=== PATIENT | female | born 1955 | race Caucasian/White ===

== ENCOUNTER → 2016-08-24 | Outpatient (CLI) | payer MEDICAID ==
[~2016-08-24] MED LIST: /MELO7TA PO; ADV250INH INH; ASPI325T10 PO; BENZ5TA PO; BIAX500T PO; BUPR15TA PO; Benzonatate PO; DEPAKOTE ER PO; DOXY10CA PO; DRIS50002 PO; IPRASOL4 INH; IPRASOL4 NEB; LITH300C PO; LITH300T2 PO; LITH45TASA PO; LITH600C PO; Lithium Carbonate PO; MUCI600T34 PO; MULTCAP11 PO; NICO14PA TD; OMEP20CA3 PO; PRED20TAB PO; Pantoprazole Sodium PO; QUET30XR PO; QUET5TAB PO; Quetiapine Fumarate PO; RISP12.5 IM; RISP1TAB21 PO; RISP1TAB3 PO; RISP2TAB30 PO; RISP4TAB33 PO; SERO1TAB PO; SERO50TA PO; SPIR1CAP INH; SPIRIVA INH; TESS100C PO; TRAZ50TA2 PO; VENTAER IN; VITA50003 PO; WELLTAB38 PO; spiriva INH
[2016-08-24 13:37] LABS: ALBUMIN/GLOBULIN RATIO 1.43 (1.00-1.93); ALKALINE PHOSPHATASE 136 U/L (45-117); ALT/SGPT 33 U/L (12-78); ANION GAP 7 MEQ/L (8-16); AST/SGOT 18 U/L (15-37); BILIRUBIN,TOTAL 0.3 MG/DL (0.2-1.0); BLOOD UREA NITROGEN 18 MG/DL (7-18); CALCIUM LEVEL 9.2 MG/DL (8.8-10.2); CARBON DIOXIDE LEVEL 32 MEQ/L (21-32); CHLORIDE LEVEL 103 MEQ/L (98-107); CREATININE FOR GFR 0.74 MG/DL (0.55-1.02); FREE T4 0.87 NG/DL (0.76-1.46); GLOMERULAR FILTRATION RATE > 60.0 (>45); GLUCOSE, FASTING 88 MG/DL (80-110); POTASSIUM SERUM 4.3 MEQ/L (3.5-5.1); SODIUM LEVEL 142 MEQ/L (136-145); TOTAL PROTEIN 6.8 GM/DL (6.4-8.2)
== END ==
LOC: M SMT 11:19
PROVIDERS: ATTEND Internal Medicine Cardiovascular Disease
DX: I31.3 Pericardial effusion (noninflammatory) (principal); I50.9 Heart failure, unspecified

== ENCOUNTER → 2016-09-20 | Outpatient (CLI) | payer MEDICAID | LOC: M SMT 10:34 | PROVIDERS: ATTEND Thoracic Surgery (Cardiothoracic Vascular Surgery) | DX: I31.3 Pericardial effusion (noninflammatory) (principal) ==

== ENCOUNTER → 2016-12-01 | Outpatient (REF) | payer OTHER | LOC: M LAB REF 12:42 | PROVIDERS: ATTEND Internal Medicine Medical Oncology | DX: D75.1 Secondary polycythemia (principal) ==

== ENCOUNTER → 2017-02-26 | Outpatient (REF) | payer OTHER ==
[~2017-02-26] MED LIST changes: -MUCI600T34 PO; +MUCI600T37 PO; -RISP2TAB30 PO; +RISP2TAB32 PO; +VITA1CAP40 PO; -VITA50003 PO
[2017-02-26 21:09] LABS: MICROSCOPIC INDICATED? MAN YES (NO)
[2017-02-26 21:18] LABS: BACTERIA, URINE SMALL AMOUNT; CALCIUM OXALATE CRYSTALS,URINE SMALL AMOUNT /hpf; RBC, URINE TNTC /hpf (0-3); SQUAMOUS EPITHELIAL CELL URINE MOD AMOUNT /hpf (SMALL AMT); TRANSITIONAL EPI CELLS, URINE SMALL AMOUNT /hpf; WBC, URINE TNTC /hpf (0-3)
[2017-02-26 21:19] LABS: HYALINE CAST, URINE NONE SEEN /lpf (0-1); MICROSCOPIC EXAM PERFORMED
== END ==
LOC: M LAB REF 20:46
PROVIDERS: ATTEND Physician Assistant Medical
DX: R30.0 Dysuria (principal); R31.9 Hematuria, unspecified

== ENCOUNTER 2017-06-10 18:22 | Inpatient (IN) | payer OTHER ==
[~2017-06-10] VITALS: Ht 160 cm; Wt 65.8 kg
[2017-06-10] MEDS: BUDESONIDE 0.5 MG/2 ML INHALATION SUSPENSION INH SCH (20:00)
[2017-06-10] MEDS: IPRATROPIUM 0.5MG/ALBUTEROL 2.5MG INH SOL UD 3ML (DUONEB)(J7620) NEB SCH (20:00)
[2017-06-10] MEDS: FORMOTEROL FUMARATE 20 MCG/2 ML INHALATION SOLUTION (PERFOROMIST) INH SCH (20:00)
[2017-06-10 20:15] VITALS: BP 123/58
[2017-06-10 20:23] LABS: MEAN CORPUSCULAR HEMOGLOBIN 29.2 pg (27.0-33.0); MEAN CORPUSCULAR HGB CONC 29.7 g/dl (32.0-36.5); MEAN CORPUSCULAR VOLUME 98.4 fl (80.0-96.0); PLATELET COUNT, AUTOMATED 155 10^3/uL (150-450); RED CELL DISTRIBUTION WIDTH 13.7 % (11.5-14.5); WHITE BLOOD COUNT 10.4 10^3/uL (4.0-10.0)
[2017-06-10 20:26] LABS: SUSPECT SAMPLE POS FLAG
[2017-06-10 20:30] LABS: ABG BASE EXCESS -1.8 (-2.0-2.0); ABG HCO3 29.1 MEQ/L (22.0-26.0); ABG TOTAL CO2 31.5 MEQ/L (23.0-31.0)
[2017-06-10 20:31] LABS: ABG PARTIAL PRESSURE CO2 77.6 mmHg (35.0-45.0); ABG pH (ARTERIAL) 7.192 UNITS (7.350-7.450)
[2017-06-10] MEDS ORDERED: DOXY100T PO (20:32)
[2017-06-10] MEDS ORDERED: DOXY100C PO (20:32)
[2017-06-10] MEDS ORDERED: PRED20TA PO (20:37)
[2017-06-10] MEDS ORDERED: QUET1TAB10 PO (20:40)
[2017-06-10] MEDS ORDERED: LEVO1INJ4 IV (20:43)
[2017-06-10] MEDS ORDERED: PROAAER10 INH (20:45)
[2017-06-10 20:46] LABS: ALBUMIN 3.7 GM/DL (3.2-5.2); ALBUMIN/GLOBULIN RATIO 1.12 (1.00-1.93); ALKALINE PHOSPHATASE 120 U/L (45-117); ALT/SGPT 78 U/L (12-78); ANION GAP 6 MEQ/L (8-16); AST/SGOT 35 U/L (7-37); BILIRUBIN,TOTAL 0.6 MG/DL (0.2-1.0); BLOOD UREA NITROGEN 16 MG/DL (7-18); CALCIUM LEVEL 9.1 MG/DL (8.8-10.2); CARBON DIOXIDE LEVEL 34 MEQ/L (21-32); CHLORIDE LEVEL 99 MEQ/L (98-107); CREATININE FOR GFR 0.74 MG/DL (0.55-1.02); GLOMERULAR FILTRATION RATE > 60.0 (>45); GLUCOSE, FASTING 127 MG/DL (80-110); POTASSIUM SERUM 4.8 MEQ/L (3.5-5.1); SODIUM LEVEL 139 MEQ/L (136-145)
[2017-06-10] MEDS ORDERED: CHLORHEXIDINE ORAL RINSE 0.12%/15ML 120ML BOTTLE MT SCH (21:00)
[2017-06-10] MEDS ORDERED: SODIUM CHLORIDE 0.9% 1000 ML IV ONE (21:15)
[2017-06-10] MEDS: methylPREDNISolone INJ 125 MG/2 ML VIAL (J2930) IV SCH (21:18)
[2017-06-10 21:31] VITALS: BP 130/64
--- NOTE | 2017-06-10 21:44 | HPE ---
DATE OF ADMISSION: 06/10/2017 HISTORY: Gayle says hello to me as I walk in the room. She is refusing all care. She does not want bilevel. She understands she will without it. She does not want cardiopulmonary resuscitation (CPR), does not want intubation. States she knows that she is in [facility], that she is in the hospital, and that she is having trouble breathing. She refuses CPR, refuses bilevel positive airway pressure (BiPAP), signed DO NOT RESUSCITATE (DNR) and DO NOT INTUBATE (DNI) paperwork. I was called earlier this evening for this female who was in the [facility] emergency room (ER) for the majority of the day with progressive shortness of breath. She has significant chronic obstructive pulmonary disease (COPD). They had placed her on bilevel over there, apparently did not keep it on there. She had no significant improvement in her respiratory failure and, therefore, was sent here. She denies suicidal ideation. No recent suicide attempts. She states she is having no pain currently. The patient had a self-harm assessment at the outside emergency room. There were no intentions of hurting herself, killing herself, harming herself. She reports no recent abuse. PAST MEDICAL HISTORY: 1. COPD with recurrent acute exacerbation; has required bilevel noninvasive therapy before. 2. Chronic hypoxic respiratory failure. Multiple phone calls have been made both by [facility] and by our hospital to attempt to contact family members. We are unable to get a hold of her daughter. She states she has a daughter that would be her healthcare proxy if she is unable to make her decisions. She has had an abnormal blood gas since 1520 today at [facility] with a pH of 7.21 and a pCO2 of 81. At the outside hospital, she had a CT scan of the brain without any hemorrhage, mass or acute infarct, essentially reported as negative head CT. OUTPATIENT MEDICATIONS: The patient states she takes no medications as an outpatient. She states she does not want to take Tylenol now for any headache that she has. ALLERGIES: She reportedly has allergies to LATEX and PENICILLIN. FAMILY HISTORY: Unobtainable. SOCIAL HISTORY: Unobtainable. REVIEW OF SYSTEMS: Unobtainable at this point in time. PHYSICAL EXAMINATION: VITAL SIGNS: Temperature is 98.8, pulse is 77, respiratory rate is 30, blood pressure is 123/58, oxygen saturation 90%. GENERAL: The patient is awake, stating that she is breathing fine. She is using accessory muscles and appears to be in respiratory distress. HEENT: Pupils are 4 mm but reactive to light. Sclerae clear and anicteric. Mucous membranes are moist. Tongue is midline. NECK: Supple. No tracheal deviation. There is elevated jugular venous pulse (JVP). PULMONARY: Decreased breath sounds throughout without rales, rhonchi or wheezes. No dullness to percussion. She is using both abdominal muscles and supraclavicular muscles for accessory muscle use. No dullness to percussion. ABDOMEN: Slightly distended but no mass or hepatosplenomegaly. No hernia. Normoactive bowel sounds. EXTREMITIES: No cyanosis, clubbing or edema. LABORATORY DATA: Laboratory evaluation here showed a white blood cell count of 10.4, hemoglobin of 16.9, hematocrit 56.9 and platelet count of 155. Sodium is 139, potassium is 4.8 , bicarb is 34, BUN 16, creatinine of 0.7, fasting glucose is 127. Arterial blood gas shows pH of 7.19, pCO2 of 78 and a pAO2 of 95. IMAGING: Chest x-ray shows cardiomegaly with water-bag heart. No significant infiltrate. EKG shows decreased QRS except for in lead V3. No ST abnormalities. Sinus rhythm with a rate of 76. IMPRESSION: 1. Hypoxic hypercarbic respiratory failure, severe in nature. Patient refusing multiple medical therapies. Is alert, knows where she is, oriented to person, place and time and states that she does not want any assistance with mechanical ventilation, bilevel noninvasive ventilatory measures and understand she will likely without these. 2. Cardiomegaly, abnormal chest x-ray. I have discussed working up for potential fluid around her heart due to her cardiac silhouette being enlarged. She is in agreement to having an echocardiogram; however, I am unsure how I am going to be able to support her if she does have a significant pericardial effusion. 3. Bipolar disease. She has a history of psychologic disease, but she has no suicidal intentions, appears to be of sound mind despite her metabolic acidosis. I am attempting to contact family members so she can have a supportive environment. She was offered spiritual counseling. At this point in time, my hands are tied as she is not allowing us to perform resuscitation. In the meantime, we will support for COPD exacerbation , obtain STAT echocardiogram. AVILA
[2017-06-10] MEDS: CEFTRIAXONE SOD 1 GM in APPROPRIATE DILUENT 1 EA IV SCH (23:20)
[2017-06-10] MEDS ORDERED: INFLUENZA QUADRIVALENT PF VACCINE 0.5ML SYRINGE (90686) IM SCH (23:30)
[2017-06-11] VITALS (9 sets, daily range): BP systolic 111–140; BP diastolic 59–74
[2017-06-11] MEDS: ACETAMINOPHEN TAB 650MG DOSE (2X325MG) PO PRN ×2 (03:17→08:24)
[2017-06-11 04:38] LABS: MEAN CORPUSCULAR HEMOGLOBIN 28.9 pg (27.0-33.0); MEAN CORPUSCULAR HGB CONC 28.9 g/dl (32.0-36.5); MEAN CORPUSCULAR VOLUME 100.2 fl (80.0-96.0); PLATELET COUNT, AUTOMATED 148 10^3/uL (150-450); RED CELL DISTRIBUTION WIDTH 13.5 % (11.5-14.5); WHITE BLOOD COUNT 9.1 10^3/uL (4.0-10.0)
[2017-06-11 05:00] LABS: ANION GAP 3 MEQ/L (8-16); BLOOD UREA NITROGEN 15 MG/DL (7-18); CARBON DIOXIDE LEVEL 34 MEQ/L (21-32); CHLORIDE LEVEL 102 MEQ/L (98-107); CREATININE FOR GFR 0.67 MG/DL (0.55-1.02); GLOMERULAR FILTRATION RATE > 60.0 (>45); GLUCOSE, FASTING 128 MG/DL (80-110); MAGNESIUM LEVEL 1.9 MG/DL (1.8-2.4); POTASSIUM SERUM 5.1 MEQ/L (3.5-5.1); SODIUM LEVEL 139 MEQ/L (136-145)
[2017-06-11] MEDS: methylPREDNISolone INJ 125 MG/2 ML VIAL (J2930) IV SCH ×3 (05:18→21:25)
[2017-06-11 06:22] LABS: ABG BASE EXCESS 0.5 (-2.0-2.0); ABG PARTIAL PRESSURE O2 83.7 mmHg (75.0-100.0); ABG STANDARD HCO3 24.9 MEQ/L (22.0-26.0); ABG TOTAL CO2 34.6 MEQ/L (23.0-31.0)
[2017-06-11 06:26] LABS: ABG PARTIAL PRESSURE CO2 84.9 mmHg (35.0-45.0); ABG pH (ARTERIAL) 7.194 UNITS (7.350-7.450)
[2017-06-11] MEDS: TIOTROPIUM INHALER/CAPSULE (SPIRIVA) INH SCH (07:45)
[2017-06-11] MEDS: IPRATROPIUM 0.5MG/ALBUTEROL 2.5MG INH SOL UD 3ML (DUONEB)(J7620) NEB SCH ×4 (07:45→20:00)
[2017-06-11] MEDS: BUDESONIDE 0.5 MG/2 ML INHALATION SUSPENSION INH SCH ×2 (07:45→19:52)
[2017-06-11] MEDS: FORMOTEROL FUMARATE 20 MCG/2 ML INHALATION SOLUTION (PERFOROMIST) INH SCH ×2 (07:45→19:52)
[2017-06-11] MEDS ORDERED: ENOXAPARIN 40 MG/0.4 ML SYRINGE (J1650) SC SCH (09:00)
[2017-06-11] MEDS: PANTOPRAZOLE 40MG INJ (PROTONIX) (C9113) IV SCH (09:18)
--- NOTE | 2017-06-11 12:04 | ECHO ---
DATE OF PROCEDURE: 06/10/2017 DATE OF : 1955 AGE: 62 REFERRING PROVIDER: Dr. Ej Wilkins PATIENT LOCATION: Room 3202 REASON FOR ECHOCARDIOGRAM: Pericardial effusion. 2-D MEASUREMENTS: IVS: 1.2 cm LVPW: 1.2 cm LV: 4.5 cm RV: 4.5 cm LA: 4.6 cm Aortic root: 2.9 cm DOPPLER MEASUREMENTS: Maximum tricuspid valve velocity: 3.6 m/s 2-D COMMENTS: 1. Ruma left ventricular size and wall thickness with a normal global left ventricular systolic function estimated at 65-70%. 2. Normal left atrium. Dilated right atrium and right ventricle. A D-shaped appendix of the ventricular septum was noted in both systole and diastole. Right ventricular contraction may be normal. 3. The atrial septum appeared to be normal without any evidence of defect or shunt. 4. Normal aortic root. 5. A moderate to large pericardial effusion was noted without collapse, but there was some changes in the mitral and tricuspid valve inflow. So in the mitral and tricuspid aberrant flow that may be a manifestation of early cardiac tamponade. 6. Minimally calcified aortic valve with normal leaflet excursion. Normal mitral valve and tricuspid valve. The pulmonic valve and proximal pulmonary artery branches were not well visualized. 7. The inferior vena cava was mildly enlarged, central venous pressure might be elevated. DOPPLER: It detects mild mitral regurgitation and moderate tricuspid regurgitation. The calculated pulmonary artery systolic pressure is between 70-75 mmHg. IMPRESSIONS: 1. Normal global left ventricular systolic function. 2. Mild mitral regurgitation. 3. Moderate tricuspid regurgitation with dilated right heart chambers and severe pulmonary hypertension. 4. There are findings consistent with elevated central venous pressure. 5. Moderate to large pericardial effusion with some echocardiographic evidence of early cardiac tamponade. No collapse was noted on the right heart chambers, but pulmonary pressure is markedly elevated and for this reason we might not see any collapse of the right ventricle (RV) or right atrium (RA). The patient will benefit from a pericardial window or pericardiocentesis and ordering physician is aware. 6. Patient had an echocardiogram done last year on 01/08/2016 and only a small pericardial effusion was noted. Pulmonary artery pressure also was markedly elevated with dilated right heart chambers. Left ventricular systolic ejection fraction (LVEF) also then was normal. [facility]
--- NOTE | 2017-06-11 12:05 | REP ---
REASON: Respiratory failure. COMPARISON: Multiple, latest 01/06/2016. The technique utilized in obtaining the radiograph has magnified the cardiac silhouette and accentuated the interstitial markings. There is cardiomegaly accentuated by technique. There is diffuse haziness throughout the pulmonary vasculature. There is evidence of pulmonary vascular redistribution unchanged from the prior exam. No patchy opacities or pleural effusions seem to have developed on this portable exam. There is no change in the osseous structures. IMPRESSION: Cardiomegaly and suspected mild interstitial edema. Correlate clinically. Signed by Tejinder Ward DO 06/11/2017 08:54 A
--- NOTE | 2017-06-11 12:05 | CCN ---
DATE OF SERVICE: 06/11/2017 Gayle is awake and conversant this morning. Continues to not want any further aggressive intervention. She states she would not use bilevel noninvasive therapy. Does not want to be intubated. Does not want to have cardiopulmonary resuscitation (CPR). She understands if she does not do so, she will likely . She states she does not need any medications for pain or shortness of breath at this time; however, states that if she did have pain or dyspnea that was causing her distress that she would accept medications. I discussed narcotic medications at her bedside along with benzodiazepines. At this point in time, she states she is not ready for them yet, but would accept them if she gets to a certain point. I discussed the difference between comfort driven care and aggressive care. She states she would choose comfort care over aggressive care. At this point in time, she states she feels "okay". She has some shortness of breath. She is definitely orthopneic. No productive mucus. She is alert and oriented times three and conversant. A stat bedside echocardiogram was performed yesterday. There is a large pericardial effusion. The patient had a history of a large pericardial effusion dating back to January based on echocardiogram that I viewed. The echocardiogram did not show any D'ing of the septum. There was no ventricular compression, however, there was evidence of significant pulmonary hypertension. There was some minimal respiratory variation of the inferior vena cava. PHYSICAL EXAMINATION: Temperature is 98.6, pulse 69, respiratory rate of 31, blood pressure is 135/70 with a mean arterial pressure of 91, oxygen saturation ranging 73% to 93% on 3 liters FiO2. She is net positive 1 liter over the past 24 hours. GENERAL: The patient is sitting upright in bed, arouses to voice, does not fall asleep unintentionally during conversation. HEENT: Sclerae clear, anicteric. Pupils equal, reactive to light. Mucous membranes are moist. Tongue is midline. Neck is supple. There is elevated jugular venous pulse (JVP). No thyromegaly. Lymphs: No cervical, supraclavicular or axillary adenopathy. Cardiac: Regular. S1, S2. Without audible murmur, rub or gallop. Distant heart sounds. PMI is difficult to palpate. Pulmonary: Decreased breath sounds throughout. Without rales, rhonchi or wheezes. Overall decreased breath sounds with prolonged expiratory phase. Minimal accessory muscle use, not as much as last night. Abdomen is soft, potty, nontender, nondistended. No hepatosplenomegaly. No masses or hernia. Extremities: No cyanosis, clubbing or edema. LABORATORY EVALUATION: This morning again shows a persistent respiratory acidosis with a pH of 7.19, pCO2 of 85, pAO2 of 83. Sodium is 139, potassium 5.1, chloride 102, bicarb 34, BUN 15, creatinine 0.6, glucose 128. White blood cell count is 5.1, hemoglobin 16.2, hematocrit of 56.1, with a platelet count of 148. Chest x-ray this morning shows cardiomegaly, no significant infiltrate. IMPRESSIONS: 1. Acute hypercarbic hypoxic respiratory failure with advanced chronic obstructive pulmonary disease (COPD). Patient with respiratory acidosis. Patient refusing interventions to save her life. Appears that she is headed towards more of a comfort measures only. She repeatedly states that she understands she will without these interventions and does not want them. I have placed her on steroids and respiratory antibiotics for her COPD exacerbation. At this point in time, she has no signs of septic shock or sepsis. Will continue breathing treatments as much as patient will allow us to and as much care as the patient will allow us to perform. When she is ready, she states she will allow comfort measures to be instituted; however, she is not at that point yet. 2. Pericardial effusion without evidence of tamponade. EKG shows general decreased QRS voltage, but no significant ST abnormalities. No evidence of electrical alternans. At this point in time, the patient is refusing aggressive measures. Ultimately, if the patient were to agree to aggressive measures, I would have performed intubation, mechanical ventilation and drainage of pericardial effusion due to its large nature. 3. Pulmonary hypotension likely from longstanding COPD. Prognosis is poor, especially due to the fact that she is refusing all critical care interventions. I have transferred her to the medicine service since she is refusing all the care than I normally provide. She was advised to notify the nurse if she has any change of heart, otherwise will continue to support the patient as she desires.
--- NOTE | 2017-06-11 12:06 | REP ---
REASON: Respiratory failure. COMPARISON: 06/10/2017 at 9:27 p.m. The technique utilized in obtaining the radiograph has magnified the cardiac silhouette and accentuated the interstitial markings. Cardiomediastinal silhouette and lung salas are unchanged. There is cardiomegaly accentuated by technique. There is a subtle diffuse haziness seen throughout the pulmonary vasculature with mild pulmonary vascular redistribution status quo. IMPRESSION: No change. A pericardial effusion cannot be ruled out by this exam. Signed by Tejinder Ward DO 06/11/2017 09:19 A
--- NOTE | 2017-06-11 12:07 | CCN ---
DATE OF SERVICE: 06/11/2017 Gayle Thorne has now changed her mind regarding her resuscitation status. She is willing to accept noninvasive ventilation. She is willing to accept mechanical ventilation. Therefore, I have rescinded her DO NOT RESUSCITATE (DNR). She states she is willing to accept aggressive procedures in order to make her feel better. I have, therefore, immediately placed her on bilevel noninvasive therapy after she made this decision due to her significant hypercarbic respiratory failure. Will consult thoracic surgery. Dr. Guerra is now on the case and helpful as the attending. Additional critical care time was 45 minutes, excluding all procedures, assisting the patient with ventilation and arranging for possible percutaneous drainage of her pericardial effusion.
[2017-06-11 12:20] LABS: ABG BASE EXCESS 1.5 (-2.0-2.0); ABG HCO3 29.5 MEQ/L (22.0-26.0); ABG PARTIAL PRESSURE CO2 59.2 mmHg (35.0-45.0); ABG PARTIAL PRESSURE O2 62.6 mmHg (75.0-100.0); ABG STANDARD HCO3 25.7 MEQ/L (22.0-26.0); ABG TOTAL CO2 31.3 MEQ/L (23.0-31.0); ABG pH (ARTERIAL) 7.315 UNITS (7.350-7.450)
[2017-06-11] MEDS ORDERED: ISOVUE-370 76% 100ML VIAL (Q9967) As Ordered ONE (13:14)
--- NOTE | 2017-06-11 14:37 | REP ---
REASON: Dyspnea. COMPARISON: 11/14/2015. CONTRAST: 100 mL Isovue 370. Mediastinum and pulmonary meño are unchanged showing no evidence of a mass or adenopathy. There is a pericardial effusion which has increased significantly compared to the prior exam. There is no felipa pleural effusion. The upper abdomen is unchanged from the prior exam and the imaged osseous structures are within normal limits for the patient's age and unchanged from the prior exam. Evaluation of the lung salas again show wide spread emphysematous changes status post quo and particularly seen in the upper lobe regions. In the left lower lobe, there is a new asymmetric opacity. IMPRESSION: 1. There is a pericardial effusion which has increased from the prior exam and is moderate to large. 2. Emphysematous changes status quo. 3. New patchy right lower lobe opacity, pneumonia and/or subsegmental atelectatic change. Followup is recommended to rule out an underlying neoplasm. Signed by Tejinder Ward DO 06/11/2017 02:59 P
--- NOTE | 2017-06-11 14:54 | CR ---
DATE OF CONSULTATION: 06/11/2017 The patient seen at the request of Dr. Wilkins and Dr. Guerra of the hospitalist service for a pericardial effusion. The patient is a 62-year-old, white female who I saw in the office on 09/29/2016 who has a chronic pericardial effusion for whom I was going to undertake an elective pericardial window. She did not follow up with me. Yesterday, she sought medical attention in the [facility] for "swollen eyes". She was also short of breath, more so than usual. She is a rather poor historian at this point in time. I have taken off her CPAP mask to take a history, but she has very limited memory. Nonetheless, she was transferred here for her shortness of breath. At first, she wanted nothing done and declared herself a DO NOT RESUSCITATE patient and refused bilevel respiratory support. Dr. Wilkins initially saw her and thought that she has severe chronic obstructive pulmonary disease (COPD) and needed support. Evidently during the night, she has changed her mind. As she had known pericardial effusion, an echocardiogram was undertaken which showed about a 2 cm concentric pericardial effusion. There was no compression of the right atrium or ventricles; however, she has very high pulmonary pressures and therefore it is probably not going to show compression secondary to high pulmonary pressure secondary to her long standing COPD. She denies having fever, chills or sweats. She has a cough with white phlegm production, but no more than usual. She thinks that her weight has been stable. She denies peripheral edema. When specifically asked whether her eyes are swelling up or whether her head is swelling, she denies that she thinks her head is swelling. She does not complain of dysphagia. When asked about chest pain, she states that she does have chest pain, but she is incapable of describing it. It is not a sharp pain, it is not an aching pain, and it is not a pressure-type pain, but nonetheless it is still there and she points to the middle of her chest. This seems to have occurred within the last week. She complained of the same chest discomfort when I last saw her in September. PAST MEDICAL HISTORY: 1. COPD. 2. Prior pericardial effusion. 3. Bipolar disorder. PAST SURGERIES: Cholecystectomy in the remote past. MEDICATIONS AT HOME: - ProAir 2 puffs four times a day as needed shortness of breath - Wellbutrin 150 mg daily - doxycycline 100 mg by mouth twice a day - levofloxacin 750 mg given at [facility] times one - lithium 600 mg twice a day - prednisone 20 mg daily - quetiapine fumarate 300 mg at bedtime TRAVEL HISTORY: She has traveled to [place]. No travel to the [facility]. HABITS: Current smoker and has smoked one pack per day for 41 years. There was an interval of 10 years when she quit, but she started again. Alcohol - none. Illicit drugs - none. OCCUPATIONAL HISTORY: Janitorial cleaning. Has no convincing asbestos exposure. EXPOSURES: No prior exposure to tuberculosis. She used to have parakeets in the remote past. There are no other pets at home now. REVIEW OF SYSTEMS: Constitutional: See history of present illness (HPI). Denies fever, chills, sweats, or weight loss. Eyes: Without diplopia, amaurosis fugax or prior jaundice. Nose: Without epistaxis. Respiratory: See HPI. Cardiac: See HPI. Gastrointestinal (GI): Has constipation, but no nausea or vomiting. No diarrhea. No abdominal pain, hematemesis, prior jaundice, melena, or hematochezia. Neurologic: Without paresthesias, paralyses or transient monocular blindness. Psychiatric: Bipolar disorder. Endocrine: Without diabetes or thyroid disease. Hematologic: Has easy bruisability, but not prolonged bleeding times. Lymphatics: Without lumps or bumps in her neck, axilla or groin. Genitourinary (): Without dysuria, hematuria or history of renal stones. PHYSICAL EXAMINATION: Well developed, well nourished, white female in acute respiratory distress on BiPAP. Vital Signs: Temperature 98.0. Heart rate 78 in a sinus rhythm. Respiratory rate is 24 on BiPAP and she is 95% saturated on 30% FiO2. Her blood pressure is 134/68. Pupils equal round and reactive. Extraocular movements intact. Sclerae nonicteric. Eyelids are slightly edematous. Nose without deformity. Mouth shows her mucous membranes to be pink and moist. Lips and commissures without lesions. There is no thrush. Head: Normocephalic. Head looks a bit cyanotic, but now swollen. Neck is supple. There is no jugular venous distention. No subcutaneous emphysema. Trachea is midline. There is no thyromegaly or lymphadenopathy. She has 2+ carotid upstrokes, no bruits. Lungs: Show equal breath sounds on either side. There are rales and rhonchi on either side. Percussion note is full to the diaphragm. Cardiac Exam: Shows distant heart sounds. I do not detect murmurs, clicks, gallops, or rubs. I cannot feel her PMI. S1, S2 are normal. Abdomen: Soft. Nontender. Bowel sounds are positive. There is no hepatomegaly. No costovertebral angle (CVA) tenderness. Extremities: Show trace pretibial edema. No calf tenderness. No differential swelling of the upper extremities. Skin: Warm, dry and perfused. Without cyanosis or mottling, including that of the nail beds and knees. Neurologic: Shows II-XII intact along with gross motor and gross sensation intact. Gait is not tested. Psychiatric shows her to be awake, alert, and a little bit confused with poor communication and poor attention span. Her white count is 9.1 with hemoglobin and hematocrit of 16.2 and 56.1 respectively with a platelet count of 148. There is no differential. Electrolytes show a potassium of 5.1 which is upper limits of normal with a total CO2 slightly elevated at 34. BUN and creatinine are 15 and 0.67 with a glucose of 128 and a calcium of 9.0. Magnesium 1.9. Blood gases this morning show a pH of 7.31, pCO2 of 59 and a pO2 of 62. Yesterday, she entered the emergency room with a pH of 7.19, pCO2 of 84, prior to BiPAP. There are no coagulation studies. Her chest x-ray done portably this morning shows a very globular heart. It is almost to the chest wall. Costophrenic angles are sharp. There is no lateral film. There is cephalization of vessels, even on the portable sitting film. There is no mediastinal widening. Lung is fully expanded to the chest wall. I see no overt infiltrates and there is no subcutaneous emphsema. Echocardiogram done yesterday night and today, both of which I attended, shows a 2 cm pericardial effusion. Today's echocardiogram was used to localize the best window for the pericardial effusion and it looks as though it is around the fifth intercostal space in the anterior axillary line with very little lung if any between it and the pericardium. It is there where I propose to do a pericardiocentesis. She has dilated right ventricle and right atrium with pulmonary hypertension and hence no compression of those chambers secondary to the high pressures. IMPRESSION: 1. Pericardial effusion increasing. 2. Pulmonary hypertension. 3. Severe chronic obstructive pulmonary disease. 4. Probable right heart failure. 5. Tricuspid regurgitation. 6. Bipolar disorder. 7. Respiratory failure. PLAN AND DISCUSSION: I am going to give her 24 hours to resolve or improve the respiratory failure. She is not overtly tamponading and her blood pressure is satisfactory as is her pulse. She is not on beta blockers and so the low pulse is not artificially reduced by a beta kylah. I will have operating room backup tomorrow for the pericardiocentesis should it not be successful or should I puncture the heart. This is going to be a rather tricky pericardiocentesis, but I think doable. Will send the fluid off for all the requisite studies. Ms. Thorne understands that there are no DO NOT RESUSCITATES on the thoracic service and that the time to make decisions for resuscitation is now rather than before the operation. She fully understands that. It is my ethical responsibility to get her through a surgical procedure. She understands that there may be complications, including renal failure and respiratory failure. So as long as there is not an irreversible process, she understands that we will press on. That discussion was held in the presence of a nurse.
[2017-06-11 14:56] LABS: INR 1.14
[2017-06-11] MEDS ORDERED: SLF 3 ML SYR IV PRN (16:45)
--- NOTE | 2017-06-11 17:46 | IPNPDOC ---
Text Note Date of Service The patient was seen on 06/11/17. NOTE asked by Dr Wilkins to accept as primary. Patient seen and examined. Informed by Dr Wilkins and nursing staff that patient overnight wanted to be DNR/DNI and has refused bipap and surgical intervention. Spoke to patient who initially wanted to be DNR and DNI, but when informed of the possibility of dying from hypercarbic respiratory failure and the potential need for surgery for pericardial effusion, patient stated that she wanted surgery and would agree to bipap and intubation. Subsequently DNR was also rescinded. Dr Wilkins and Jenny RN was at bedside . Patient poor historian. Reported generalized weakness, sob. started that she probably smoke too much. appointed Her son Anoop as HCP but unable to reach him. PFT order placed Gen AAOx3, using accessory muscles, but seems relatively comfortable HEENT NC AT, MMM Pul decreased breath sound b/l, no w/r/r cardia distant heart sound, rrr s1s2 abd soft NT +BS ext no clubbing cyanosis or edema 62 F year-old female with prior history of smoking, severe COPD, on o2 at home,h /o hypercarbic respiratory failure, Pul HTN, bipolar received by Dr Wilkins from [facility] for acute on chronic hypoxic hypercarbic respiratory failure. found to have moderate pericardial effusion 1. acute on chronic Hypoxic hypercarbic respiratory failure, with severe COPD, pul HTN possible right heart failure f/u pul rec patient care delay due to patient's indecision, patient initially refused bipap , insisted on DNR/DNI currently full code duoneb, solumedrol,. Spiriva, budesonide and formoterol bipap repeat abg showed improvement rocephin 2. moderate to large pericardial effusion tte Thoracic surgery consulted possible pericardicentesis 3. Bipolar disease. She has a history of psychologic disease, but she has no suicidal intentions. hold Seroquel restart Wellbutrin and lithium check lithium level dvt ppx teds scd, AC on hold due to possible procedure. dipo pending clinical improvement VS,Fishbone, I+O VS, Fishbone, I+O Laboratory Tests 06/10/17 20:15 Red Blood Count 5.78 H, Mean Corpuscular Volume 98.4 H, Mean Corpuscular Hemoglobin 29.2, Mean Corpuscular Hemoglobin Concent 29.7 L, Red Cell Distribution Width 13.7, Calcium Level 9.1, Aspartate Amino Transf (AST/SGOT) 35 , Alanine Aminotransferase (ALT/SGPT) 78, Alkaline Phosphatase 120 H, Total Bilirubin 0.6, Total Protein 7.0, Albumin 3.7 06/11/17 04:13 Red Blood Count 5.60 H, Mean Corpuscular Volume 100.2 H, Mean Corpuscular Hemoglobin 28.9, Mean Corpuscular Hemoglobin Concent 28.9 L, Red Cell Distribution Width 13.5, Calcium Level 9.0 Vital Signs Date Time Temp Pulse Resp B/P (MAP) Pulse Ox O2 Delivery O2 Flow Rate FiO2 06/11/17 16:00 BIPAP/CPAP 30 06/11/17 16:00 98.8 81 28 140/69 (92) 95 06/11/17 10:00 3.0 I&O- Last 24 Hours up to 6 AM 06/12/17 06:00 Intake Total 0 ml Output Total 200 ml Balance -200 ml JONAH WRIGHT MD Jun 11, 2017 17:46
[2017-06-11] MEDS: LITHIUM CARBONATE 600 MG CAP PO SCH (21:24)
[2017-06-11] MEDS: SLF 3 ML SYR IV SCH (21:25)
[2017-06-11] MEDS: CEFTRIAXONE SOD 1 GM in APPROPRIATE DILUENT 1 EA IV SCH (22:45)
[2017-06-12] VITALS (26 sets, daily range): BP systolic 110–160; BP diastolic 56–76; O2SAT 98
[2017-06-12 04:37] LABS: MEAN CORPUSCULAR HEMOGLOBIN 29.2 pg (27.0-33.0); MEAN CORPUSCULAR HGB CONC 30.2 g/dl (32.0-36.5); MEAN CORPUSCULAR VOLUME 96.6 fl (80.0-96.0); PLATELET COUNT, AUTOMATED 167 10^3/uL (150-450); RED CELL DISTRIBUTION WIDTH 13.5 % (11.5-14.5)
[2017-06-12 05:02] LABS: ANION GAP 6 MEQ/L (8-16); BLOOD UREA NITROGEN 19 MG/DL (7-18); CARBON DIOXIDE LEVEL 33 MEQ/L (21-32); CHLORIDE LEVEL 101 MEQ/L (98-107); CREATININE FOR GFR 0.51 MG/DL (0.55-1.02); GLOMERULAR FILTRATION RATE > 60.0 (>45); GLUCOSE, FASTING 121 MG/DL (80-110); MAGNESIUM LEVEL 2.1 MG/DL (1.8-2.4); POTASSIUM SERUM 4.4 MEQ/L (3.5-5.1); SODIUM LEVEL 140 MEQ/L (136-145)
[2017-06-12 05:07] LABS: LITHIUM LEVEL 0.95 MEQ/L (0.60-1.20)
[2017-06-12] MEDS: SLF 3 ML SYR IV SCH ×3 (05:28→23:17)
[2017-06-12] MEDS: methylPREDNISolone INJ 125 MG/2 ML VIAL (J2930) IV SCH ×3 (05:29→21:11)
[2017-06-12] MEDS: IPRATROPIUM 0.5MG/ALBUTEROL 2.5MG INH SOL UD 3ML (DUONEB)(J7620) NEB SCH ×4 (08:00→20:00)
[2017-06-12] MEDS: TIOTROPIUM INHALER/CAPSULE (SPIRIVA) INH SCH (08:00)
[2017-06-12] MEDS: BUDESONIDE 0.5 MG/2 ML INHALATION SUSPENSION INH SCH ×2 (08:01→20:29)
[2017-06-12] MEDS: FORMOTEROL FUMARATE 20 MCG/2 ML INHALATION SOLUTION (PERFOROMIST) INH SCH ×2 (08:01→20:28)
[2017-06-12] MEDS ORDERED: MIDAZOLAM INJ 2 MG/2 ML VIAL (J2250) As Ordered ONE (08:33)
[2017-06-12] MEDS ORDERED: LIDOCAINE 1% MDV 20ML VIAL As Ordered ONE (08:34)
[2017-06-12 10:12] LABS: ABG BASE EXCESS 5.6 (-2.0-2.0); ABG HCO3 33.5 MEQ/L (22.0-26.0); ABG PARTIAL PRESSURE O2 67.2 mmHg (75.0-100.0); ABG STANDARD HCO3 29.4 MEQ/L (22.0-26.0); ABG TOTAL CO2 35.4 MEQ/L (23.0-31.0); ABG pH (ARTERIAL) 7.355 UNITS (7.350-7.450)
[2017-06-12 10:16] LABS: ABG PARTIAL PRESSURE CO2 61.4 mmHg (35.0-45.0)
--- NOTE | 2017-06-12 10:21 | REP ---
REASON FOR EXAM: Status post pericardial window with pericardial drainage tube. The cardiac size has diminished even though the exam is obtained using portable technique. The technique utilized in obtaining the radiograph has magnified the cardiac silhouette and accentuated the interstitial markings. There is no change in the lung salas. No acute patchy opacities have developed. There is no pneumothorax. There is no change in the osseous structures. IMPRESSION: Decreased cardiac size consistent with reduction of a pericardial effusion. Signed by Tejinder Ward DO 06/12/2017 10:28 A
--- NOTE | 2017-06-12 10:31 | IPNPDOC ---
Text Note Date of Service The patient was seen on 06/12/17. NOTE no acute events overnight. mental status slightly improved. Denied CP, abd pain , n/v, reported hungry. on bipap Gen AAOx3, using accessory muscles, but seems relatively comfortable HEENT NC AT, MMM Pul decreased breath sound b/l, no w/r/r cardia distant heart sound, rrr s1s2 abd soft NT +BS ext no clubbing cyanosis or edema 62 F year-old female with prior history of smoking, severe COPD, on o2 at home,h /o hypercarbic respiratory failure, Pul HTN, bipolar received by Dr Wilkins from [facility] for acute on chronic hypoxic hypercarbic respiratory failure. found to have moderate pericardial effusion 1. acute on chronic Hypoxic hypercarbic respiratory failure, with severe COPD, pul HTN possible right heart failure f/u pul rec patient care delay due to patient's indecision, patient initially refused bipap , insisted on DNR/DNI currently full code duoneb, solumedrol,. Spiriva, budesonide and formoterol bipap repeat abg showed improvement rocephin 2. moderate to large pericardial effusion tte Thoracic surgery consulted pericardicentesis today f/u fluid annalysis likely 2/2 to Pul HTN 3. Bipolar disease. She has a history of psychologic disease, but she has no suicidal intentions. hold Seroquel restart Wellbutrin and lithium check lithium level 4. Counseling provided nicotine patch time spent 5 min dvt ppx teds scd, AC on hold due to possible procedure. dipo pending clinical improvement VSAgatha, I+O VS, Agatha, I+O Laboratory Tests 06/12/17 04:07 Red Blood Count 5.28, Mean Corpuscular Volume 96.6 H, Mean Corpuscular Hemoglobin 29.2, Mean Corpuscular Hemoglobin Concent 30.2 L, Red Cell Distribution Width 13.5, Calcium Level 9.0 Vital Signs Date Time Temp Pulse Resp B/P (MAP) Pulse Ox O2 Delivery O2 Flow Rate FiO2 06/12/17 08:02 30 06/12/17 08:00 BIPAP/CPAP 06/12/17 04:00 98.8 73 22 136/64 (88) 94 06/11/17 10:00 3.0 JONAH WRIGHT MD Jun 12, 2017 10:31
[2017-06-12] MEDS ORDERED: LIDOCAINE 1% MDV 20ML VIAL SC ONE (11:00)
[2017-06-12] MEDS ORDERED: MIDAZOLAM INJ 2 MG/2 ML VIAL (J2250) IV ONE (11:00)
[2017-06-12] MEDS: LITHIUM CARBONATE 600 MG CAP PO SCH ×2 (11:49→21:12)
[2017-06-12] MEDS: buPROPion **XL** TABLET 150MG (WELLBUTRIN XL) PO SCH (11:50)
[2017-06-12] MEDS: PANTOPRAZOLE 40MG INJ (PROTONIX) (C9113) IV SCH (11:51)
[2017-06-12] MEDS: NICOTINE 14 MG/24 HR TRANSDERMAL TD SCH (11:53)
[2017-06-12 12:20] LABS: LDH, BODY FLUID 189 U/L (NOT ESTABLISHED); TOTAL PROTEIN, BODY FLUID 4.3 G/DL (NOT ESTABLISHED)
[2017-06-12 12:29] LABS: BF MONONUCLEAR CELL % 69.3 % (0-0); BF POLYMORPHONUCLEAR CELL % 30.7 % (0-0); RBC BODY FLUID 4 10^3/uL (<2); WBC BODY FLUID 117 /uL (0-10)
[2017-06-12 12:31] LABS: BF DIFF IF INDICATED? YES (NO)
--- NOTE | 2017-06-12 12:57 | IPN ---
DATE OF SERVICE: 06/12/2017 Ms. Thorne is still on bilateral positive airway pressure (BiPAP). Examination was performed both before and after her pericardiocentesis. Her vital signs show a maximum temperature (Tmax) of 98.8 with a heart rate that ranges between 79 and 83 in a sinus rhythm, respiratory rate of 22 on BiPAP. With that, she is 94% saturated on 30% FIO2. Her intake and output over the past 24 hours has been recorded as only 70 mL in and 675 mL out, for a negativity of 600 mL. Her weight today is 69.5 kg compared to 69.4 kg on 06/10/2017. On physical examination, her lungs show scattered rhonchi. I cannot get her to cough on BiPAP. Percussion note is full to the diaphragm. After the physical examination, her lungs sounded less congested. Cardiovascular examination: Is without murmurs, click, gallops, or rubs. Her heart sounds were very very distant prior to the pericardiocentesis and much more pronounced after the pericardiocentesis. Furthermore, her QRS is much more pronounced after the pericardiocentesis. I cannot feel her point of maximal impulse (PMI). S1 and S2 are normal. Abdomen: Is soft, nontender, but tympanitic and distended. Bowel sounds are positive but hypoactive. There is no hepatomegaly and no costovertebral angle (CVA) tenderness. Extremities show no pretibial edema, no calf tenderness, no differential swelling of the upper extremities. Skin: Is warm, dry, and perfused without cyanosis or mottling, including that of the nail beds and the knees. Neck is supple. There is no jugular venous distention, no subcutaneous emphysema. Trachea is midline. Mouth shows her mucous membranes to be pink and moist. Lips and commissures without lesions. There is no thrush. Eyes show her pupils to be equal and reactive. Extraocular muscles intact. Sclerae anicteric. Neurologic: Shows II-XII intact, along with gross motor and gross sensation intact. Gait is not tested. Psychiatric: Shows her to be awake, alert, and oriented times three, with appropriate mood and affect. Her white count today is 11.0 with a hemoglobin and hematocrit of 15.4 and 51.0 with a platelet count of 167 and stable. Chemistries today show normal electrolytes with a marginally high total CO2 of 33. BUN and creatinine are 19 and 0.51 with a glucose of 121 and a calcium of 9.0 and a magnesium of 2.1. Her PT/INR yesterday were 14.8 and 1.14, respectively. Blood gases today show a pH of 7.355, pCO2 is 61, pO2 of 67. Her base excess is 5.6. Her chest x-ray yesterday, both done portably, shows a rather globular heart with cephalization of vessels. Her chest x-ray after the pericardiocentesis showed a much less globular heart. I see no overt infiltrates on the portable films. Costophrenic angles are sharp. There is no pneumothorax after the pericardiocentesis. IMPRESSION: 1. Pericardial effusion, increasing. 2. Pulmonary hypertension. 3. Severe chronic obstructive pulmonary disease (COPD). 4. Right heart failure. 5. Tricuspid regurgitation. 6. Bipolar disorder. 7. Respiratory failure. PLAN AND DISCUSSION: I have undertaken a pericardiocentesis today under echo guidance. The operating room is standing by should there be a complication. Hopefully, after the pericardiocentesis, she will breathe better and will be able to be weaned off her BiPAP.
[2017-06-12] MEDS: ACETAMINOPHEN TAB 650MG DOSE (2X325MG) PO PRN ×3 (13:19→21:12)
--- NOTE | 2017-06-12 14:17 | ECHO ---
LIMITED ECHOCARDIOGRAM POST PERICARDIOCENTESIS DATE OF STUDY: 06/12/2017 2D COMMENTS: 1. Please refer to echocardiogram done on 06/10/2017 for details. 2. Limited echocardiogram done today revealed only trace pericardial effusion noted in limited views. Left ventricular ejection fraction (LVEF) is normal. 3. The study was technically very limited due to poor acoustic window. AVILA
[2017-06-12] MEDS: CEFTRIAXONE SOD 1 GM in APPROPRIATE DILUENT 1 EA IV SCH (23:17)
[2017-06-13] VITALS (9 sets, daily range): BP systolic 124–144; BP diastolic 61–77; O2SAT 91–97
[2017-06-13] MEDS: ACETAMINOPHEN TAB 650MG DOSE (2X325MG) PO PRN (04:04)
[2017-06-13 04:46] LABS: MEAN CORPUSCULAR HEMOGLOBIN 29.2 pg (27.0-33.0); MEAN CORPUSCULAR HGB CONC 30.5 g/dl (32.0-36.5); MEAN CORPUSCULAR VOLUME 95.8 fl (80.0-96.0); PLATELET COUNT, AUTOMATED 171 10^3/uL (150-450); RED CELL DISTRIBUTION WIDTH 13.4 % (11.5-14.5); WHITE BLOOD COUNT 14.4 10^3/uL (4.0-10.0)
[2017-06-13 04:47] LABS: SUSPECT SAMPLE POS FLAG
[2017-06-13 05:02] LABS: ANION GAP 3 MEQ/L (8-16); BLOOD UREA NITROGEN 20 MG/DL (7-18); CALCIUM LEVEL 8.8 MG/DL (8.8-10.2); CARBON DIOXIDE LEVEL 34 MEQ/L (21-32); CHLORIDE LEVEL 102 MEQ/L (98-107); CREATININE FOR GFR 0.55 MG/DL (0.55-1.02); GLOMERULAR FILTRATION RATE > 60.0 (>45); GLUCOSE, FASTING 149 MG/DL (80-110); MAGNESIUM LEVEL 2.1 MG/DL (1.8-2.4); POTASSIUM SERUM 4.4 MEQ/L (3.5-5.1); SODIUM LEVEL 139 MEQ/L (136-145)
[2017-06-13] MEDS: methylPREDNISolone INJ 125 MG/2 ML VIAL (J2930) IV SCH ×2 (05:36→12:58)
[2017-06-13] MEDS: SLF 3 ML SYR IV SCH ×3 (05:37→21:12)
[2017-06-13] MEDS: FORMOTEROL FUMARATE 20 MCG/2 ML INHALATION SOLUTION (PERFOROMIST) INH SCH ×2 (07:34→19:25)
[2017-06-13] MEDS: TIOTROPIUM INHALER/CAPSULE (SPIRIVA) INH SCH (07:34)
[2017-06-13] MEDS: BUDESONIDE 0.5 MG/2 ML INHALATION SUSPENSION INH SCH ×2 (07:35→19:25)
[2017-06-13] MEDS: IPRATROPIUM 0.5MG/ALBUTEROL 2.5MG INH SOL UD 3ML (DUONEB)(J7620) NEB SCH ×4 (07:36→20:00)
[2017-06-13] MEDS: PANTOPRAZOLE 40MG INJ (PROTONIX) (C9113) IV SCH (08:19)
[2017-06-13] MEDS: NICOTINE 14 MG/24 HR TRANSDERMAL TD SCH (08:20)
[2017-06-13] MEDS: LITHIUM CARBONATE 600 MG CAP PO SCH ×2 (08:20→21:12)
[2017-06-13] MEDS: buPROPion **XL** TABLET 150MG (WELLBUTRIN XL) PO SCH (08:20)
[2017-06-13 09:19] LABS: ABG BASE EXCESS 3.3 (-2.0-2.0); ABG HCO3 30.3 MEQ/L (22.0-26.0); ABG PARTIAL PRESSURE CO2 53.4 mmHg (35.0-45.0); ABG PARTIAL PRESSURE O2 75.8 mmHg (75.0-100.0); ABG STANDARD HCO3 27.3 MEQ/L (22.0-26.0); ABG pH (ARTERIAL) 7.372 UNITS (7.350-7.450)
[2017-06-13] MEDS: HEPARIN SOD (PORCINE) 5000 UNITS/ML VIAL SQ SCH ×2 (12:59→21:12)
--- NOTE | 2017-06-13 14:02 | IPNPDOC ---
Text Note Date of Service The patient was seen on 06/13/17. NOTE No acute events overnight. off bipap. tolerating oral. expressive aphasia resolved. No new complaints Gen AAOx3, using accessory muscles, but seems relatively comfortable HEENT NC AT, MMM Pul decreased breath sound b/l, no w/r/r cardia rrr s1s2, pericardial drain in place abd soft NT +BS ext no clubbing cyanosis or edema 62 F year-old female with prior history of smoking, severe COPD, on o2 at home,h /o hypercarbic respiratory failure, Pul HTN, bipolar [facility] on chronic hypoxic hypercarbic respiratory failure. found to have moderate pericardial effusion 1. acute on chronic Hypoxic hypercarbic respiratory failure, with severe COPD, pul HTN possible right heart failure f/u pul rec patient care delay due to patient's indecision, patient initially refused bipap , insisted on DNR/DNI currently full code duoneb, solumedrol,. Spiriva, budesonide and formoterol off bipap today repeat abg showed resolution rocephin 2. moderate to large pericardial effusion tte Thoracic surgery consulted pericardicentesis with drain f/u fluid annalysis likely 2/2 to Pul HTN 3. Bipolar disease. She has a history of psychologic disease, but she has no suicidal intentions. hold Seroquel restart Wellbutrin and lithium check lithium level 4. Smoking Counseling provided nicotine patch time spent 5 min dvt ppx teds scd, heparin SQ after d/w with surgery dipo pending clinical improvement, thorasic surgery recs. VS,Fishbone, I+O VS, Fishbone, I+O Laboratory Tests 06/13/17 04:07 Red Blood Count 5.96 H, Mean Corpuscular Volume 95.8, Mean Corpuscular Hemoglobin 29.2, Mean Corpuscular Hemoglobin Concent 30.5 L, Red Cell Distribution Width 13.4, Calcium Level 8.8 Vital Signs Date Time Temp Pulse Resp B/P (MAP) Pulse Ox O2 Delivery O2 Flow Rate FiO2 06/13/17 12:00 97.6 90 24 139/73 (95) 90 Nasal Cannula 4.0 06/12/17 11:30 30 I&O- Last 24 Hours up to 6 AM 06/14/17 06:00 Intake Total 60 ml Balance 60 ml JONAH WRIGHT MD Jun 13, 2017 14:02
--- NOTE | 2017-06-13 14:17 | RO ---
DATE OF PROCEDURE: 06/12/2017 PREPROCEDURE DIAGNOSIS: Pericardial effusion. POSTPROCEDURE DIAGNOSIS: Pericardial effusion. PROCEDURE: Pericardiocentesis and tube pericardiostomy under echocardiographic control with operating room standby, under moderate sedation. SURGEON: Dr. Issa Olsen TOY DEPARTMENT MANAGER: ANESTHESIA: FINDINGS: The pericardium was drained of 500 mL of royal fluid. This was sent for the requisite studies including bacteriology, hematology, chemistries, and cytologies. DESCRIPTION OF PROCEDURE: Under moderate sedation achieved with 4 mg of Versed, patient was prepped and draped in the usual sterile fashion. The intercostal window is where the pericardial effusion was observed. With the probe just inferior to the probing needle, patient's skin and subcutaneous tissue was infiltrated with 1% Xylocaine, and the needle could be seen approaching the pericardium. A large needle was then placed, again, under echocardiographic control, until clear fluid was found. At that point in time, a guidewire was placed which could be seen going into the pericardium. An incision around the wire was made and the tract was dilated, and a tube pericardiostomy was placed gingerly over the guidewire with the metal stylette being withdrawn as the pericardiostomy tube was advanced. The above findings were noted. Tube was secured to the chest wall with two #3-0 silk sutures. It was then connected to the Pleur-evac at 20 cm of suction. Patient tolerated the procedure well, and chest x-ray is pending.
--- NOTE | 2017-06-13 16:16 | IPN ---
DATE: 06/13/2017 This is now the first postprocedure day from the tube pericardiostomy. She is doing remarkably better and now is off her BiPAP mask. She is up and sitting and talking in full sentences. She herself is feeling much better. Her vital signs show a maximum temperature (Tmax) of 98.8 with a heart rate that ranges between 90 and 71 in a sinus rhythm, respiratory rate of 20-24 without the use of accessory muscles, who is 90-97% saturated on 4 liters nasal cannula and blood pressures ranging between 141/65 to 124/61. Her intake and output over the past 24 hours has been recorded as 1110 in and 1745 out for a negativity of 635 mL. Yesterday she put out 1020 through her cardiostomy tube. Today she has put out 120 mL. Her weight today is 69.1 kg compared to 69.5 kg yesterday. On physical examination, she has some inspiratory rales on both sides which are markedly diminished. Percussion note is full to the diaphragm. Heart exam: Shows squeaks consistent with a tube. I do not near any murmurs, click, gallops, or rubs. I cannot feel her point of maximal impulse (PMI). S1 and S2 are normal. Abdomen: Is soft, nontender. Bowel sounds are positive. There is no hepatomegaly and no costovertebral angle (CVA) tenderness. Extremities show no pretibial edema, no calf tenderness, no differential swelling of the upper extremities. Skin: Is warm, dry, and perfused without cyanosis or mottling, including that of the nail beds. Neck is supple. There is no jugular venous distention, no subcutaneous emphysema. Trachea is midline. Mouth shows her mucous membranes to be pink and moist. Lips and commissures without lesions. There is no thrush. Eyes show her pupils to be equal and reactive. Extraocular muscles intact. Sclerae anicteric. Neurologic: Shows II-XII intact, along with gross motor and gross sensation intact. Gait is not tested. Psychiatric: Shows her to be awake, alert, and oriented times three, with appropriate mood and affect and conversational. Her white count today is 14.4 up from 11.0 yesterday. Hemoglobin and hematocrit are 17.4 and 57.1. Platelet count of 171. Her electrolytes are normal except for a slightly elevated total CO2 of 34. BUN and creatinine are 20 and 0.55 with a glucose of 149 and a calcium of 8.8 and a magnesium of 2.1. Blood gases yesterday showed a pH of 7.3, PCO2 53, and a PO2 of 75 with a base excess of 3.3. Her chest x-ray shows her lung fully expanded to the chest wall. There is no pneumothorax. Heart size is much less globular. The chest x-ray however is done AP, tomorrow I will have him send her down for a PA, lateral. Pericardiostomy tube is in good place. Costophrenic angles are sharp. Her pericardial fluid has come back at 7.6 and with a LDH of 189. Corresponding serum LDH is 232. Her fluid total protein is 4.3 with a corresponding serum of 7.0. This makes a barely exudative pericardial effusion. Glucose 122 and she only had 117 white cells, however 69% of these were lymphocytes and 30% were neutrophils. IMPRESSION: 1. Pericardial effusion, dressed with a tube pericardiostomy. 2. Pulmonary hypertension. 3. Severe chronic obstructive pulmonary disease (COPD). 4. Right heart failure. 5. Tricuspid regurgitation. 6. Bipolar disorder. 7. Respiratory failure, resolving. PLAN AND DISCUSSION: I will keep the tube pericardiostomy at least another day. Pleural fluid looks as though it is mildly exudative and neutrophilic. Microbiology does not show any organisms and we are waiting cytology. It is really very unclear where the pericardial effusion is coming from at this point and time. Certainly a pericardial effusion or pleural effusion can come from right heart failure.
[2017-06-13] MEDS: CEFTRIAXONE SOD 1 GM in APPROPRIATE DILUENT 1 EA IV SCH (22:19)
[2017-06-14] VITALS (7 sets, daily range): BP systolic 123–148; BP diastolic 66–80
[2017-06-14] MEDS: methylPREDNISolone INJ 125 MG/2 ML VIAL (J2930) IV SCH ×2 (00:59→12:31)
--- NOTE | 2017-06-14 01:09 | ECGEPIP ---
Stationary ECG Study [facility] Test Date: 2017-06-10 Pat Name: LOU MARCH Department: Room: [place] [address] Gender: F Aircraft Refueler: JANIS : [id number] Requested By: MADDIE Kwon Order Number: [id number] Reading MD: Natalio Bai Measurements Intervals [place] Rate: 76 P: 66 IN: 146 QRS: 130 QRSD: 76 T: 60 QT: 404 QTc: 456 Interpretive Statements SINUS RHYTHM RIGHT AXIS DEVIATION, PROBABLY RELATED TO LEAD MISPLACEMENT MODERATE T-WAVE ABNORMALITY, CONSIDER ANTERIOR ISCHEMIA COMPARED TO THE LAST 2 TRACINGS Electronically Signed On 06-14-2017 1:09:24 EST by Natalio Bai
[2017-06-14] MEDS: ACETAMINOPHEN TAB 650MG DOSE (2X325MG) PO PRN (02:13)
[2017-06-14 04:24] LABS: MEAN CORPUSCULAR HEMOGLOBIN 29.1 pg (27.0-33.0); MEAN CORPUSCULAR HGB CONC 30.4 g/dl (32.0-36.5); MEAN CORPUSCULAR VOLUME 95.5 fl (80.0-96.0); PLATELET COUNT, AUTOMATED 166 10^3/uL (150-450); RED CELL DISTRIBUTION WIDTH 13.4 % (11.5-14.5); WHITE BLOOD COUNT 12.3 10^3/uL (4.0-10.0)
[2017-06-14 04:25] LABS: SUSPECT SAMPLE POS FLAG
[2017-06-14 04:40] LABS: ANION GAP 5 MEQ/L (8-16); BLOOD UREA NITROGEN 15 MG/DL (7-18); CALCIUM LEVEL 9.4 MG/DL (8.8-10.2); CARBON DIOXIDE LEVEL 31 MEQ/L (21-32); CHLORIDE LEVEL 104 MEQ/L (98-107); CREATININE FOR GFR 0.48 MG/DL (0.55-1.02); GLOMERULAR FILTRATION RATE > 60.0 (>45); GLUCOSE, FASTING 124 MG/DL (80-110); MAGNESIUM LEVEL 2.1 MG/DL (1.8-2.4); POTASSIUM SERUM 4.7 MEQ/L (3.5-5.1); SODIUM LEVEL 140 MEQ/L (136-145)
[2017-06-14] MEDS: SLF 3 ML SYR IV SCH ×3 (05:07→21:06)
[2017-06-14] MEDS: TIOTROPIUM INHALER/CAPSULE (SPIRIVA) INH SCH (07:28)
[2017-06-14] MEDS: IPRATROPIUM 0.5MG/ALBUTEROL 2.5MG INH SOL UD 3ML (DUONEB)(J7620) NEB SCH ×4 (07:28→19:53)
[2017-06-14] MEDS: FORMOTEROL FUMARATE 20 MCG/2 ML INHALATION SOLUTION (PERFOROMIST) INH SCH ×2 (07:28→19:52)
[2017-06-14] MEDS: BUDESONIDE 0.5 MG/2 ML INHALATION SUSPENSION INH SCH ×2 (07:28→19:52)
[2017-06-14] MEDS: LITHIUM CARBONATE 600 MG CAP PO SCH ×2 (07:56→21:06)
[2017-06-14] MEDS: HEPARIN SOD (PORCINE) 5000 UNITS/ML VIAL SQ SCH ×2 (07:56→21:06)
[2017-06-14] MEDS: buPROPion **XL** TABLET 150MG (WELLBUTRIN XL) PO SCH (07:56)
[2017-06-14] MEDS: NICOTINE 14 MG/24 HR TRANSDERMAL TD SCH (07:57)
[2017-06-14] MEDS: PANTOPRAZOLE 40MG TAB (PROTONIX) PO SCH (08:02)
--- NOTE | 2017-06-14 08:46 | REP ---
PA and lateral chest: Comparison is the most recent available. Film study of the chest in the film file dated 06/12/2017. Additionally, there is a chest CT dated 06/11/2017. On the comparison chest CT there was a pericardial effusion. There is a chest tube entering from left, likely a pericardial II, unchanged from all 04/22/2017. Cardiac size is mildly enlarged but unchanged from the prior study. There are new small bilateral pleural effusions in the posterior sulci. The lung salas otherwise clear. The meño, mediastinum, and bony thorax are unremarkable. Impression: New small bilateral pleural effusions. Pericardial chest tube is unchanged. Signed by Jese Calvillo MD 06/14/2017 08:37 A
--- NOTE | 2017-06-14 14:42 | IPN ---
DATE: 06/14/2017 SUBJECTIVE: The patient tells me that she is feeling significantly better today. She tells me she has no significant complaints at this time. She tells that her shortness of breath is improved. She does not have her pain over her tube insertion site. She denies fevers, chills, chest pain, shortness of breath, nausea, vomiting, or diarrhea. OBJECTIVE: VITAL SIGNS: Temperature 98.3, pulse 68, respiratory rate 26, blood pressure 123/68, oxygen saturation 91% on 4 liters nasal cannula. GENERAL: She is a pleasant female sitting up in bed. She does not appear to be in any acute distress. HEENT: Cranial nerves II through XII are grossly intact. She has moist mucous membranes. No elevation of central venous pressure (CVP). CARDIOVASCULAR EXAM: S1 and S2 regular. RESPIRATORY EXAM: Actually quite clear. Chest tube insertion site is serosanguineous stained. It is intact. ABDOMINAL EXAM: Benign. EXTREMITIES: No clubbing, cyanosis, or edema. LABORATORY STUDIES: WBC 12.3, down from 14.4, hemoglobin 17.9, platelet count 166. Chemistry panel: Sodium 140, potassium 4.7, chloride 104, bicarb 31, BUN 15, creatinine 0.4. Pericardial culture fluid is negative. Gram stain and culture negative. Acid fast and fungal smears currently pending. Pathology is currently pending. IMAGING: The patient did have a chest x-ray PA and lateral today that revealed a new small bilateral pleural effusion. Pericardiac chest tube is unchanged. ASSESSMENT/PLAN: This is a 62-year-old female with a history of chronic obstructive pulmonary disease (COPD) on chronic 2-3 liters at home intermittently who presented with shortness of breath, found to have hypoxic respiratory failure with moderate pericardial effusion. 1. Hypoxic respiratory failure. Patient has severe COPD, pulmonary hypertension, and likely early tamponade. 2. Right heart failure. Pulmonary's help has been greatly appreciated. Patient was previously DNR, DNI. This was rescinded. She is currently off of BiPAP and is a FULL CODE. She is continued on Solu-Medrol, DuoNeb, and Spiriva, and formoterol. She is continued on Rocephin although her cultures do appear to be negative. She does have a low grade temperature of 100.4 yesterday and has a persistent leukocytosis, which may be related to her steroids. 3. Pericardial effusion. Dr. Olsen's help is greatly appreciated. Pericardiocentesis with drain is in place. It was felt this was likely related to pulmonary hypertension and right hear failure. Will defer to Dr. Olsen when the pericardial drain can be removed. 4. She does appear to be significantly improved at this time. 5. Bipolar disorder. She is continued on bupropion, lithium. 6. Tobacco abuse. Cessation counseling provided. She is using a nicotine patch. 7. Gastrointestinal (GI) prophylaxis. She is on Protonix. 8. Deep vein thrombosis (DVT) prophylaxis. She is on heparin. 9. Polycythemia. She may be slightly hemoconcentrated. Possibly this is secondary to her chronic hypoxia and noncompliance with continuous oxygen therapy at home. Will attempt to wean her oxygen to her baseline of 2-3 liters continuously. DISPOSITION: She is working with physical therapy and does appear to be improving quite well. Once her drain is removed, she could likely be transferred to the progressive care unit. AVILA
--- NOTE | 2017-06-14 22:11 | IPN ---
DATE: 06/14/2017 Ms. Thorne is feeling much better and breathing well. She is off her CPAP and on 4 liters nasal cannula. Her maximum temperature (t-max) over the last 24 hours has been 100.4. Heart rate ranges between 67 and 76 in a sinus rhythm with a respiratory rate of 24 to 26 without the use of accessory muscles, who is 91 to 93% saturated on 4 liters nasal cannula, and whose blood pressure is ranging between 123/68 to 143/77. Her intake and output over the past 24 hours has been recorded as 600 in and 1225 out for a negativity of 505 mL. She has put out 150 mL from the pericardial tube; however, in the last 8 hours has only put out 25 mL. The majority of the 150 mL was early yesterday morning. Weight is still pending. PHYSICAL EXAMINATION: LUNGS: Her lungs show some bibasilar faint crackles during late inspiration. Percussion note is full to the diaphragm. CARDIAC: Examination is without murmurs, clicks, gallops or rubs. I cannot feel her PMI. S1, S2 normal. Cardiac exam was done after I removed the pericardial tube and I heard no residual squeaks. ABDOMEN: Soft, nontender. Bowel sounds are positive. There is no hepatomegaly and no costovertebral angle (CVA) tenderness. EXTREMITIES: Show no pretibial edema, no calf tenderness, no differential swelling of the upper extremities. SKIN: Is warm, dry, and perfused without cyanosis or mottling, including that of the nail beds and knees. NECK: Supple. There is no jugular venous distention. No subcutaneous emphysema. Trachea is midline. Mouth shows her mucous membranes to be pink and moist. Lips and commissures without lesions. There is no thrush. Eyes show her pupils to be equal and reactive. Extraocular muscles intact. Sclerae anicteric. NEUROLOGIC: Shows II-XII intact, along with gross motor and gross sensation intact. Gait is not tested. PSYCHIATRIC: Shows her to be awake, alert, and oriented times three, with appropriate mood and affect and conversational. Her white count today is 12.3 with a hemoglobin and hematocrit of 7.9 and 58.8 with a platelet count of 166. Her chemistries today show normal electrolytes with a BUN and creatinine of 15 and 0.48. Glucose is 124 with a magnesium of 2.1. I discussed her pericardial fluid now since yesterday, being mildly exudative and normal glycemic and predominantly lymphocytic. Microbiology has all been negative, including aerobic and anaerobic cultures. No organisms were seen on the gram-stain. Pathology shows mesothelial cells, which are being stained for markers. These look like reactive mesothelial cells. Her chest x-ray today shows her lung fully expanded to the chest wall. Heart contour is back to normal. Pericardial tube was in good place. I see no other infiltrates. Costophrenic angles are sharp but on the lateral film there is a small what looks to be left-sided pleural effusion. IMPRESSION: 1. Pericardial effusion, addressed with a tube pericardiostomy, resolved. 2. Pulmonary hypertension. 3. Chronic obstructive pulmonary disease (COPD). 4. Right heart failure. 5. Tricuspid regurgitation. 6. Bipolar disorder. 7. Respiratory failure, resolved. PLAN AND DISCUSSION: We still have a great explanation for her pericardial effusion. Certainly her right heart failure could be the culprit. Nonetheless, we have to rule out other metabolic diseases, including autoimmune diseases. I will therefore order CANDACE and RA on her. These are reactive mesothelial cells and it is highly doubtful that this is a pericardial mesothelioma. She has been temporarily treated. We will have to observe her closely over the next couple of months to make sure that the pericardial effusion does not recur. If it does, we will need to take her to the operating room to do an elective pericardial window, as we were going to do in September. This does not look bacterial, although it could be viral in origin. That is a diagnosis of exclusion, however. I will discontinue her pericardial tube and transfer her to the progressive care unit (PCU).
[2017-06-15] MEDS: CEFTRIAXONE SOD 1 GM in APPROPRIATE DILUENT 1 EA IV SCH (00:06)
[2017-06-15] MEDS: methylPREDNISolone INJ 125 MG/2 ML VIAL (J2930) IV SCH ×2 (00:06→12:33)
[2017-06-15 04:00] VITALS: BP 142/97
[2017-06-15 05:06] LABS: MEAN CORPUSCULAR HEMOGLOBIN 28.7 pg (27.0-33.0); MEAN CORPUSCULAR HGB CONC 30.3 g/dl (32.0-36.5); MEAN CORPUSCULAR VOLUME 94.6 fl (80.0-96.0); PLATELET COUNT, AUTOMATED 159 10^3/uL (150-450); RED CELL DISTRIBUTION WIDTH 13.2 % (11.5-14.5); WHITE BLOOD COUNT 10.9 10^3/uL (4.0-10.0)
[2017-06-15 05:12] LABS: SUSPECT SAMPLE POS FLAG
[2017-06-15 05:27] LABS: ANION GAP 3 MEQ/L (8-16); BLOOD UREA NITROGEN 19 MG/DL (7-18); CALCIUM LEVEL 9.4 MG/DL (8.8-10.2); CARBON DIOXIDE LEVEL 32 MEQ/L (21-32); CHLORIDE LEVEL 103 MEQ/L (98-107); CREATININE FOR GFR 0.53 MG/DL (0.55-1.02); GLOMERULAR FILTRATION RATE > 60.0 (>45); GLUCOSE, FASTING 140 MG/DL (80-110); MAGNESIUM LEVEL 2.1 MG/DL (1.8-2.4); POTASSIUM SERUM 4.9 MEQ/L (3.5-5.1); SODIUM LEVEL 138 MEQ/L (136-145)
[2017-06-15] MEDS: SLF 3 ML SYR IV SCH ×3 (05:39→21:15)
[2017-06-15 08:00] VITALS: BP 134/67
[2017-06-15] MEDS: IPRATROPIUM 0.5MG/ALBUTEROL 2.5MG INH SOL UD 3ML (DUONEB)(J7620) NEB SCH ×4 (08:00→20:00)
[2017-06-15] MEDS: FORMOTEROL FUMARATE 20 MCG/2 ML INHALATION SOLUTION (PERFOROMIST) INH SCH ×2 (08:04→20:30)
[2017-06-15] MEDS: TIOTROPIUM INHALER/CAPSULE (SPIRIVA) INH SCH (08:04)
[2017-06-15] MEDS: BUDESONIDE 0.5 MG/2 ML INHALATION SUSPENSION INH SCH ×2 (08:06→20:30)
[2017-06-15] MEDS: LITHIUM CARBONATE 600 MG CAP PO SCH ×2 (08:20→21:14)
[2017-06-15] MEDS: buPROPion **XL** TABLET 150MG (WELLBUTRIN XL) PO SCH (08:20)
[2017-06-15] MEDS: HEPARIN SOD (PORCINE) 5000 UNITS/ML VIAL SQ SCH ×2 (08:20→21:14)
[2017-06-15] MEDS: PANTOPRAZOLE 40MG TAB (PROTONIX) PO SCH (08:20)
[2017-06-15] MEDS: NICOTINE 14 MG/24 HR TRANSDERMAL TD SCH (08:20)
--- NOTE | 2017-06-15 10:47 | REP ---
PA and lateral chest: Comparison is 06/14/2017. The pericardial l drainage tube has been removed. There is no pneumopericardium. Cardiac size is upper normal. Lung salas are clear. The meño, mediastinum, and bony thorax are unremarkable. There is no pneumothorax. The small pleural effusions noted in the posterior sulci previously are no longer present. Impression: The pericardial drainage tube has been removed. Negative PA and lateral chest. Signed by Jese Calvillo MD 06/15/2017 10:38 A
[2017-06-15 12:00] VITALS: BP 141/72
--- NOTE | 2017-06-15 14:19 | IPNPDOC ---
Text Note Date of Service The patient was seen on 06/15/17. NOTE SUBJECTIVE: She is feeling better this morning. She is glad to have the chest tube out as well, although she does report that she has been draining some serosanguineous drainage that is "sticky". Otherwise, she is concerned that she will have to be on oxygen 24 7 now, and she mentions that she does not have enough into moving into spindling their home, therefore I'll speak with PFS to ensure that we may be able to get an extension hose. Otherwise, she is not have any acute complaints, she does not have shortness of breath, chest pain, wheezing, or cough. The remainder of her review of systems is negative. OBJECTIVE: Gen: Awake, alert, oriented. She is a sitting upright eating breakfast in the chair. She is not in any acute distress HEENT: hearing is grossly intact to conversation, she is wearing nasal cannula. She is not using any accessory muscles for respiration. Cardiovascular exam: Regular rate and rhythm, I do not appreciate any murmurs rubs or gallops. Respiratory: Clear to auscultation throughout, I do not appreciate any rales, rhonchi, or wheezing. pericardial chest tube has been removed, she does have a bandage overlying where this was previously placed which is stained with serosanguineous material. Abdomen: Soft, nontender, nondistended, bowel sounds are present. Extremities: 2+ pulses (regular) in the dorsalis pedis and radial arteries bilaterally. No evidence of clubbing or edema IMAGING: PA and lateral chest x-ray from this morning shows the small pleural effusions noted in the posterior sulci are no longer present, this is read as negative study PATHOLOGY: Cellblock has returned with findings consistent of reactive mesothelial cells, however they have mentioned that it is almost impossible to differentiate between a well-differentiated mesothelioma from a reactive process by cytology alone, therefore follow-up is recommended as clinically indicated. ASSESSMENT/PLAN: This is a 62-year-old female with a history of chronic obstructive pulmonary disease (COPD) on chronic 2-3 liters at home intermittently who presented with shortness of breath, found to have hypoxic respiratory failure with moderate pericardial effusion. 1. Hypoxic respiratory failure. Improving 2. Right heart failure. 3. Pericardial effusion. 4. Bipolar disorder. Continue with home medications 5. Tobacco abuse. Using nicotine patch 6. Gastrointestinal (GI) prophylaxis. Continue with Protonix 7. Deep vein thrombosis (DVT) prophylaxis with heparin. 8. Polycythemia. Likely secondary to chronic respiratory failure, we'll continue to monitor. PLAN: She appears to be improving. We will work with physical therapy and to ensure that she is adequately able to care for herself at home. We will begin weaning her steroids today as well. I spoke with Dr. Olsen who recommends that she continue follow-up with her her environmental construction engineer Dr. Bai on an outpatient basis receiving an echocardiogram every 3 months for at least the next 1 year to ensure that the pericardial effusion does not return VS,Fishbone, I+O VS, Fishbone, I+O Laboratory Tests 06/15/17 04:45 Red Blood Count 6.14 H, Mean Corpuscular Volume 94.6, Mean Corpuscular Hemoglobin 28.7, Mean Corpuscular Hemoglobin Concent 30.3 L, Red Cell Distribution Width 13.2, Calcium Level 9.4 Vital Signs Date Time Temp Pulse Resp B/P (MAP) Pulse Ox O2 Delivery O2 Flow Rate FiO2 06/15/17 12:00 98.6 68 22 141/72 (95) 95 Nasal Cannula 2.0 06/12/17 11:30 30 I&O- Last 24 Hours up to 6 AM 06/16/17 06:00 Intake Total 360 ml Output Total 600 ml Balance -240 ml PEDRO CAMPA DO Jun 15, 2017 14:19
--- NOTE | 2017-06-15 15:22 | IPN ---
DATE: 06/15/2017 Ms. Thorne is still in the intensive care unit (ICU) awaiting a progressive care unit (PCU) bed. She is breathing well and she is ambulated around the unit. Her vital signs show a maximum temperature (t-max) of 98.9 with a heart rate that ranges 74 and 82 in a sinus rhythm, respiratory rate of 18 to 20 without the use of accessory muscles, who is 98% saturated on 3 liters nasal cannula, but desaturates also down to 86%. Her blood pressure ranges between 133/80 to 148/72. Her intake and output over the past 24 hours has been recorded as 1330 in and 1925 out for a negativity of 600 mL. Pericardial tube was removed yesterday. Her weight today is 67.8 kg compared to 69.1 kg yesterday. PHYSICAL EXAMINATION: LUNGS: Her lungs show nearly normal vesicular sounds without wheezes, rhonchi or rales. CARDIAC: Examination is without murmurs, clicks, gallops or rubs. I specifically cannot hear pericardial friction rub. I cannot feel her PMI. S1, S2 normal. ABDOMEN: Soft, nontender. Bowel sounds are positive. There is no hepatomegaly and no costovertebral angle (CVA) tenderness. EXTREMITIES: Show no pretibial edema, no calf tenderness, no differential swelling of the upper extremities. SKIN: Is warm, dry, and perfused without cyanosis or mottling, including that of the nail beds and knees. NECK: Supple. There is no jugular venous distention. No subcutaneous emphysema. Trachea is midline. Mouth shows her mucous membranes to be pink and moist. Lips and commissures without lesions. There is no thrush. Eyes show her pupils to be equal and reactive. Extraocular muscles intact. Sclerae anicteric. NEUROLOGIC: Shows II-XII intact, along with gross motor and gross sensation intact. Gait is not tested. PSYCHIATRIC: Shows her to be awake, alert, and oriented times three, with appropriate mood and affect and conversational. Her white count today is 10.9, down from 12.3 yesterday. Hemoglobin and hematocrit are 17.6 and 58.1. Platelet count is 159. There is no differential. Her electrolytes are normal with a BUN and creatinine of 19 and 0.53 with a glucose of 140 and calcium 9.1, magnesium 2.1. CANDACE screen is pending. Her rheumatoid factor is less than 10. Her chest x-ray today shows her lung fully expanded to the chest wall. Cardiac silhouette is normal and no longer globular. Costophrenic angles are sharp. There are no infiltrates. There may be some compression atelectasis in the left lower hemithorax on the lateral film near the costophrenic angle. IMPRESSION: 1. Pericardial effusion, addressed with a tube pericardiostomy, resolved but origin unknown. 2. Pulmonary hypertension. 3. Chronic obstructive pulmonary disease (COPD). 4. Right heart failure. 5. Tricuspid regurgitation. 6. Bipolar disorder. 7. Respiratory failure, resolved. 8. Erythrocytosis. PLAN AND DISCUSSION: I am not sure what her pericardial effusion is secondary to. Usually viral disease is invoked by exclusion. We are still waiting for the CANDACE. It certainly was chronic, having seen her last September. I therefore indicated to her that she should be followed by Dr. Bai, her inspector balance truing, every three months with an echocardiogram. If the pericardial effusion recurs, we will have to do something definitive, i.e. pericardial window. We have all been thinking that her erythrocytosis is secondary to her chronic hypoxia; however, it is rather high. Polycythemia vera is certainly in the differential. I will therefore order a AB mutation.
[2017-06-15 16:00] VITALS: BP 148/75
[2017-06-15 20:00] VITALS: BP 122/67
[2017-06-16] VITALS: BP 114/60
[2017-06-16] MEDS: CEFTRIAXONE SOD 1 GM in APPROPRIATE DILUENT 1 EA IV SCH ×2 (00:11→23:55)
[2017-06-16 04:00] VITALS: BP 130/80
[2017-06-16] MEDS: SLF 3 ML SYR IV SCH ×4 (06:00→23:55)
[2017-06-16 06:01] LABS: MEAN CORPUSCULAR HEMOGLOBIN 28.7 pg (27.0-33.0); MEAN CORPUSCULAR HGB CONC 30.4 g/dl (32.0-36.5); MEAN CORPUSCULAR VOLUME 94.6 fl (80.0-96.0); PLATELET COUNT, AUTOMATED 184 10^3/uL (150-450); RED CELL DISTRIBUTION WIDTH 13.5 % (11.5-14.5); WHITE BLOOD COUNT 11.6 10^3/uL (4.0-10.0)
[2017-06-16 06:17] LABS: SUSPECT SAMPLE POS FLAG
[2017-06-16 06:21] LABS: ANION GAP 5 MEQ/L (8-16); BLOOD UREA NITROGEN 19 MG/DL (7-18); CALCIUM LEVEL 9.5 MG/DL (8.8-10.2); CARBON DIOXIDE LEVEL 34 MEQ/L (21-32); CHLORIDE LEVEL 99 MEQ/L (98-107); CREATININE FOR GFR 0.45 MG/DL (0.55-1.02); GLOMERULAR FILTRATION RATE > 60.0 (>45); GLUCOSE, FASTING 81 MG/DL (80-110); POTASSIUM SERUM 4.1 MEQ/L (3.5-5.1); SODIUM LEVEL 138 MEQ/L (136-145)
[2017-06-16] MEDS: BUDESONIDE 0.5 MG/2 ML INHALATION SUSPENSION INH SCH ×2 (07:56→20:00)
[2017-06-16] MEDS: TIOTROPIUM INHALER/CAPSULE (SPIRIVA) INH SCH (07:56)
[2017-06-16] MEDS: FORMOTEROL FUMARATE 20 MCG/2 ML INHALATION SOLUTION (PERFOROMIST) INH SCH ×2 (07:56→20:00)
[2017-06-16 08:00] VITALS: BP 124/69
[2017-06-16] MEDS: IPRATROPIUM 0.5MG/ALBUTEROL 2.5MG INH SOL UD 3ML (DUONEB)(J7620) NEB SCH ×4 (08:00→20:00)
--- NOTE | 2017-06-16 08:45 | REP ---
PA and lateral chest: Comparison is 06/15/2017. Lung salas are clear. Cardiac size normal. The meño, mediastinum, and bony thorax unremarkable. There is slight effacement of the left costophrenic angle and posterior sulcus compatible with a small left pleural effusion. On the lateral view there is mild effacement of the right posterior sulcus compatible with a tiny right pleural effusion. Impression: Probable small bilateral pleural effusions. Otherwise, negative PA and lateral chest. Signed by Jese Calvillo MD 06/16/2017 08:36 A
[2017-06-16] MEDS: PANTOPRAZOLE 40MG TAB (PROTONIX) PO SCH (10:12)
[2017-06-16] MEDS: buPROPion **XL** TABLET 150MG (WELLBUTRIN XL) PO SCH (10:12)
[2017-06-16] MEDS: predniSONE 20 MG TAB PO SCH (10:12)
[2017-06-16] MEDS: LITHIUM CARBONATE 600 MG CAP PO SCH ×2 (10:12→21:32)
[2017-06-16] MEDS: HEPARIN SOD (PORCINE) 5000 UNITS/ML VIAL SQ SCH ×2 (10:13→21:33)
[2017-06-16] MEDS: NICOTINE 14 MG/24 HR TRANSDERMAL TD SCH (10:13)
[2017-06-16] MEDS ORDERED: TIOT18INH INH (11:43)
[2017-06-16] MEDS ORDERED: PRED10TA2 PO (11:43)
[2017-06-16 12:00] VITALS: BP 135/73
[2017-06-16 20:00] VITALS: BP 134/66
--- NOTE | 2017-06-16 20:45 | DS.PDOC ---
Discharge Summary General Date of Admission Jun 10, 2017 at 19:54 Date of Discharge 06/16/2017 Discharge Summary PRIMARY CARE PHYSICIAN: [facility] ATTENDING AT TIME OF DISCHARGE: Dr. Massey DISCHARGE DIAGNOS(E)S: 1. Acute respiratory failure with hypoxia and hypercarbia 2. Right heart failure 3. Pericardial effusion requiring tube pericadiostomy during this hospitalization 4. Bipolar disorder 5. Tobacco abuse 6. Polycythemia 7. Pulmonary hypertension 8. Severe chronic obstructive pulmonary disease 9. Tricuspid regurgitation HPI & HOSPITAL COURSE: Ms. Thorne is a 62-year-old female who was transferred to our facility from the [place] emergency room before from pulmonology and cardiothoracic services. An echocardiogram was performed which demonstrated a moderate to large pericardial effusion with some echocardiographic evidence of early cardiac tamponade, although they ventricle collapse may not a been as pronounced and given her significant degree of pulmonary hypertension. Cardiothoracic surgery did perform a pericardiocentesis and a drainage tube was left in place for 2 days until drainage sufficiently slowed down. This was subsequently removed, and so far she has not reaccumulated fluid around the heart. It is her recommendation that she continue to follow-up with her power lineman technician Dr. ellis every 3 months for an echocardiogram to monitor if this will return. Otherwise, her advanced COPD he was treated with steroids and nebulizers. She did continue to have be treated with ceftriaxone throughout her stay, however this was discontinued upon discharge. Spiriva was added to her medicine regimen as well. Prior to this hospitalization she did have oxygen therapy which she used only while she was at home. Her oxygen saturation at rest was 96 % on room air, however she did desaturate down to 85% with ambulation on room air. However, with 2 L nasal cannula she did maintain an oxygen saturation of 92 % while ambulating, therefore it is recommended that she have continuous oxygen , and a prescription for portable oxygen was written upon discharge It is suspected that her polycythemia is a secondary polycythemia from chronic respiratory failure, however a AB 2 was ordered, but this result has not come back at the time of her discharge and should be followed up as an outpatient. PHYSICAL EXAMINATION ON DISCHARGE: GENERAL: Awake, alert, she does not appear to be in any acute distress at this time. CARDIOVASCULAR EXAMINATION: Regular rate and rhythm, with no rubs, gallops, or murmur. RESPIRATORY EXAMINATION: Clear to auscultation bilaterally with no wheezes, rales, or rhonchi. ABDOMINAL EXAMINATION: Soft, nontender, nondistended. Bowel sounds present. EXTREMITIES: No clubbing or edema noted. 2+ pulses in the radial bilaterally. DISPOSITION: Home DISCHARGE INSTRUCTIONS: With follow-up with primary care provider within 7-10 days. Regular diet. Activity as tolerated, recommend continuous oxygen therapy 24 7 as indicated above. If symptoms return, or if you experience worsening of your symptoms, please call your doctor or return to the emergency department. ITEMS THAT NEED OUTPATIENT FOLLOWUP: AB 2 for evaluation polycythemia vera still pending. She will need to follow up with her power lineman technician every 3 months for repeat echocardiograms for at least the next year to ensure that she is not developing another pericardial effusion. If this does occur then a referral to cardiothoracic surgeon Dr. Issa Olsen MD would be recommended. My preceptor for this patient encounter was physically present in the building during the encounter and was fully available. As needed, all aspects of the patient interview, examination, medical decision making process, and medical care plan development were reviewed and approved by the preceptor. Preceptor is aware and concurs with the plan as stated in the body of this note and will attest to such by his/her cosignature. Vital Signs/I&Os Vital Signs Date Time Temp Pulse Resp B/P (MAP) Pulse Ox O2 Delivery O2 Flow Rate FiO2 06/16/17 16:00 99.4 71 20 96 Nasal Cannula 2.0 06/16/17 12:00 135/73 (93) 06/12/17 11:30 30 I&O- Last 24 Hours up to 6 AM 06/17/17 06:00 Intake Total 840 ml Output Total 500 ml Balance 340 ml Laboratory Data Labs 24H Laboratory Tests 2 06/16/17 05:24: Nucleated Red Blood Cells % (auto) 0.0, Anion Gap 5L, Glomerular Filtration Rate > 60.0, Blood Urea Nitrogen 19H, Creatinine 0.45L, Sodium Level 138, Potassium Level 4.1, Chloride Level 99, Carbon Dioxide Level 34H, Calcium Level 9.5, Magnesium Level 2.0 CBC/BMP Laboratory Tests 06/16/17 05:24 Red Blood Count 6.47 H, Mean Corpuscular Volume 94.6, Mean Corpuscular Hemoglobin 28.7, Mean Corpuscular Hemoglobin Concent 30.4 L, Red Cell Distribution Width 13.5, Calcium Level 9.5 Microbiology Microbiology 06/12/17 Acid Fast Stain, Received Pending 06/12/17 Mycobacterial Culture, Received Pending 06/12/17 Fungal Smear, Received Pending 06/12/17 Fungal Culture, Received Pending 06/12/17 Gram Stain - Final, Complete 06/12/17 Anaerobic Culture - Final, Complete 06/12/17 Body Fluid Culture - Final, Complete Discharge Medications Scheduled Bupropion HCl (Wellbutrin Xl) 150 Mg Tab, 150 MG PO DAILY, (Reported) [place] Carbonate ([place] Carbonate) 600 Mg Cap, 600 MG PO BID, (Reported) Prednisone (Prednisone) 10 Mg Tab, 10 MG PO TAPER Take 4 tabs daily x 3 days, then 3 tabs daily x 3 days, then 2 tabs daily x 3 days, then 1 tab daily x 3 days and stop Quetiapine Fumerate (Quetiapine Fumarate) 300 Mg Tab, 300 MG PO QHS, (Reported) Tiotropium Chunky Monohydrate (Spiriva Handihaler) 5 Inhalation/Inhaler Powd, 1 INHALATION INH DAILY@08 Scheduled PRN Albuterol Sulfate (Proair Hfa) 108 Mcg/Act Aer, 2 PUFF INH QID PRN for SHORTNESS OF BREATH, (Reported) Albuterol/Ipratropium (Ipratropium Chunky/Albut 0.5-2.5 (3) mg/3Ml) 1 Luana Luana, 1 LUANA INH Q4H PRN for SHORTNESS OF BREATH, (Reported) Allergies Coded Allergies: Latex (Verified Allergy, Intermediate, RASH, 06/23/13) Penicillins (Verified Allergy, Intermediate, 01/17/13) PEDRO CAMPA DO Jun 16, 2017 20:45
[2017-06-17 04:00] VITALS: BP 120/73
[2017-06-17] MEDS: BUDESONIDE 0.5 MG/2 ML INHALATION SUSPENSION INH SCH (07:42)
[2017-06-17] MEDS: TIOTROPIUM INHALER/CAPSULE (SPIRIVA) INH SCH (07:42)
[2017-06-17] MEDS: FORMOTEROL FUMARATE 20 MCG/2 ML INHALATION SOLUTION (PERFOROMIST) INH SCH (07:42)
[2017-06-17] MEDS: IPRATROPIUM 0.5MG/ALBUTEROL 2.5MG INH SOL UD 3ML (DUONEB)(J7620) NEB SCH ×2 (07:43→11:07)
[2017-06-17 08:00] VITALS: BP 129/66
[2017-06-17] MEDS: HEPARIN SOD (PORCINE) 5000 UNITS/ML VIAL SQ SCH (09:00)
[2017-06-17] MEDS: PANTOPRAZOLE 40MG TAB (PROTONIX) PO SCH (10:35)
[2017-06-17] MEDS: NICOTINE 14 MG/24 HR TRANSDERMAL TD SCH (10:35)
[2017-06-17] MEDS: SLF 3 ML SYR IV SCH (10:36)
[2017-06-17] MEDS: buPROPion **XL** TABLET 150MG (WELLBUTRIN XL) PO SCH (10:36)
[2017-06-17] MEDS: LITHIUM CARBONATE 600 MG CAP PO SCH (10:36)
[2017-06-17] MEDS: predniSONE 20 MG TAB PO SCH (10:36)
--- NOTE | 2017-06-17 19:03 | IPNPDOC ---
Text Note Date of Service The patient was seen on 06/17/17. NOTE The patient needed to stay one additional night in the hospital due to transportation issues. No changes were made in her medical management, she will be going home today. Please see yesterday's discharge note. VS,Fishbone, I+O VS, Fishbone, I+O Vital Signs Date Time Temp Pulse Resp B/P (MAP) Pulse Ox O2 Delivery O2 Flow Rate FiO2 06/17/17 08:00 Nasal Cannula 2.0 06/17/17 08:00 98.5 63 20 129/66 (87) 93 06/12/17 11:30 30 I&O- Last 24 Hours up to 6 AM 06/18/17 06:00 Intake Total 0 ml Output Total 0 ml Balance 0 ml PEDRO CAMPA DO Jun 17, 2017 19:03
== END 2017-06-17 12:20 | disposition home or self-care (01) | DRG 207 ==
LOC: M ICU 19:54 → M PCU 06-15 19:20 → M ICU 06-15 19:20 → UNDODISIN 06-16 17:12 → M PCU 06-16 17:45
PROVIDERS: ADMIT Internal Medicine Pulmonary Disease; ATTEND Internal Medicine
PROC: 0W9D3ZX Drainage of Pericardial Cavity, Percutaneous Approach, Diagnostic (ICD-10-PCS; principal; 2017-06-12)
DX: I31.3 Pericardial effusion (noninflammatory) (principal); J96.01 Acute respiratory failure with hypoxia; E87.2 Acidosis; I27.20 Pulmonary hypertension, unspecified; I50.810 Right heart failure, unspecified; D75.1 Secondary polycythemia; J96.02 Acute respiratory failure with hypercapnia; J44.1 Chronic obstructive pulmonary disease with (acute) exacerbation; I36.0 Nonrheumatic tricuspid (valve) stenosis; F31.9 Bipolar disorder, unspecified; Z79.899 Other long term (current) drug therapy; Z88.0 Allergy status to penicillin; Z91.040 Latex allergy status; F17.200 Nicotine dependence, unspecified, uncomplicated

== ENCOUNTER → 2017-06-23 | Outpatient (CLI) | payer OTHER ==
[~2017-06-23] MED LIST changes: +DOXY100C PO; +DOXY100T PO; +LEVO1INJ4 IV; +PRED10TA2 PO; +PRED20TA PO; +PROAAER10 INH; +QUET1TAB10 PO; +TIOT18INH INH
--- NOTE | 2017-06-24 02:32 | REP ---
Clinical: Pericardial effusion. Comparison: 06/16/2017. Technique: PA and lateral. Findings: The mediastinum and cardiac silhouette are normal. No pericardial effusion appreciated or suggested. The lung salas demonstrate chronic interstitial changes and previous left basilar infiltrate has resolved. No acute consolidation, effusion, or pneumothorax. The skeletal structures are intact and normal. Impression: Chronic appearing interstitial changes. Previous basilar infiltrate has resolved. No pericardial effusion. Signed by Miquel George MD 06/24/2017 02:23 A
== END ==
LOC: M SMT 09:12
PROVIDERS: ATTEND Thoracic Surgery (Cardiothoracic Vascular Surgery)
DX: I31.3 Pericardial effusion (noninflammatory) (principal)

== ENCOUNTER → 2017-10-18 | Outpatient (CLI) | payer OTHER | LOC: M RAD 11:07 | DX: Z12.31 Encounter for screening mammogram for malignant neoplasm of breast (principal); E04.1 Nontoxic single thyroid nodule; Z78.0 Asymptomatic menopausal state | CPT/HCPCS: 76536 ==

== ENCOUNTER → 2017-11-24 | Outpatient (REF) | payer OTHER | LOC: M LAB REF 15:24 | DX: E04.2 Nontoxic multinodular goiter (principal) ==

== ENCOUNTER → 2018-01-27 | Outpatient (REF) | payer OTHER ==
[2018-01-27 17:08] LABS: BASO % 0.5 % (0.0-1.0); EOS # 0.3 10^3/uL (0.0-0.50); EOS % 4.1 % (0.0-3.0); HEMATOCRIT 45.9 % (36.0-47.0); HEMOGLOBIN 14.2 g/dl (12.0-15.5); IMMATURE GRANULOCYTE % 0.3 % (0-3.0); LYMPH # 1.1 10^3/uL (1.5-4.5); LYMPH % 14.5 % (24.0-44.0); MEAN CORPUSCULAR HEMOGLOBIN 28.5 pg (27.0-33.0); MEAN CORPUSCULAR HGB CONC 30.9 g/dl (32.0-36.5); MONO # 0.4 10^3/uL (0.0-0.8); MONO % 5.8 % (0.0-5.0); NEUTROPHILS # 5.7 10^3/uL (1.8-7.7); NEUTROPHILS % 74.8 % (36.0-66.0); PLATELET COUNT, AUTOMATED 198 10^3/uL (150-450); RED BLOOD COUNT 4.99 10^6/uL (4.00-5.40); WHITE BLOOD COUNT 7.6 10^3/uL (4.0-10.0)
[2018-01-27 17:35] LABS: RHEUMATOID FACTOR QUANT < 10.0 IU/ML (<15.0)
[2018-01-30 04:17] LABS: CONTROL LINE MONO INT CTR LINE PRESENT; MONO SCRN NEGATIVE (NEGATIVE)
[2018-01-30 14:16] LABS: ANTINUCLEAR ANTIBODIES DIRECT Negative (Negative)
== END ==
LOC: M LAB REF 16:20
DX: M19.90 Unspecified osteoarthritis, unspecified site (principal)
CPT/HCPCS: 84550